=== PATIENT | male | born 2005 | race Two or more races ===

== ENCOUNTER 2024-08-07 08:23 | Emergency (ER) | payer MEDICAID, SELFPAY ==
[2024-08-07 08:24] VITALS: BMI 28.3
[2024-08-07 08:34] VITALS: BP 135/80; PULSE 110; RESP 21; TEMP 38.5; O2SAT 99
--- NOTE | 2024-08-07 08:41 | XR_ITS ---
Examination: PA lateral chest 2 views Technique: Upright PA lateral chest 2 views Exam date and time: August 07, 2024 0904 hrs. Indications: Coughing today. Findings: Normal heart size. Lungs are clear. The osseous structures are intact Impression: No active disease
--- NOTE | 2024-08-07 08:41 | PD.EDURI ---
Upper Respiratory Inf. RME/HPI General Chief Complaint: Flu Like Symptoms Stated Complaint: SORE THROAT, BACK PAIN, FEVER LAST NIGHT Time Seen by Provider: 08/07/24 08:37 Source: patient Arrival date/time: 08/07/24 08:23 18-year-old male presents emergency department complaining of sore throat, upper back pain on inspiration, fever, headache, cough, and generalized bodyaches since last night. Mode of arrival: ambulatory Limitations: no limitations Related Data Previous Rx's ?Medication ?Instructions ?Recorded cephalexin 250 mg capsule (Keflex) 250 mg PO TID #30 caps 04/16/18 diphenhydramine HCl 50 mg capsule 50 mg PO Q6H PRN allergic reaction 11/16/21 #20 caps epinephrine 0.3 mg/0.3 mL 0.3 ml subcut .once #1 ea 11/16/21 injection, auto-injector (EpiPen) famotidine 20 mg tablet 20 mg PO BID #14 tabs 11/16/21 diphenhydramine HCl 25 mg capsule 50 mg (2 x 25 mg) PO Q8H PRN 12/21/22 (Benadryl) allergic reaction #30 caps epinephrine 0.3 mg/0.3 mL 0.3 ml subcut .once #2 ea 12/21/22 injection, auto-injector (EpiPen 2-Diego) acetaminophen 500 mg capsule 500 mg PO Q6H PRN pain #30 caps 08/07/24 ibuprofen 600 mg tablet 600 mg PO Q8H PRN pain #20 tabs 08/07/24 Allergies Allergy/AdvReac Type Severity Reaction Status Date / Time Bee Stings Allergy Unknown HIVES, Uncoded 08/07/24 08:26 THROAT ITCHY, SOB Review of Systems Review of Systems Systems Reviewed: All systems reviewed, normal except as documented Constitutional Constitutional: Reports system reviewed and no additional complaints, except as documented, Reports body ache(s), Denies chills, Reports fever(s) and Reports headache(s) Eyes Eyes: Reports system reviewed and no additional complaints, except as documented and Denies change in vision ENT Ears, Nose, Mouth, and Throat: Reports system reviewed and no additional complaints, except as documented, Denies disequilibrium, Denies dizziness, Reports headache(s), Reports sore throat and Denies vertigo Cardiovascular Cardiovascular: Reports system reviewed and no additional complaints, except as documented, Denies chest pain and Denies dyspnea Respiratory Respiratory: Reports system reviewed and no additional complaints, except as documented, Denies chest congestion, Reports cough and Denies dyspnea Gastrointestinal Gastrointestinal: Reports system reviewed and no additional complaints, except as documented, Denies abdominal pain, Denies nausea and Denies vomiting Musculoskeletal Musculoskeletal: Reports system reviewed and no additional complaints, except as documented, Denies abnormal gait and Denies arthralgias Integumentary/Breasts Skin/Breast: Reports system reviewed and no additional complaints, except as documented, Denies erythema, Denies rash and Denies wounds Neurologic Neurologic: Reports system reviewed and no additional complaints, except as documented, Denies abnormal gait, Denies disequilibrium, Denies dizziness, Reports headache(s) and Denies vertigo Past Medical History Social History SMOKING STATUS: Never smoker ED Exam General Limitations: Present no limitations General appearance: Present alert and in no apparent distress Head Head exam: Present atraumatic Eye Eye exam: Present normal appearance, PERRL and EOMI ENT ENT exam: Present normal exam, normal oropharynx and mucous membranes moist Neck Neck exam: Present normal inspection, full ROM and trachea midline Chest Chest inspection: Present normal inspection and symmetric chest wall rise Respiratory Respiratory exam: Present normal lung sounds bilaterally Cardiovascular Cardiovascular exam: Present regular rate, normal rhythm and normal heart sounds Abdominal Exam Abdominal exam: Present soft and normal bowel sounds Extremities Exam Extremities exam: Present normal inspection and full ROM Back Exam Back exam: Present normal inspection and full ROM Neurological Exam Neurological exam: Present alert, oriented X3 and CN II-XII intact Psychiatric Psychiatric exam: Present normal affect and normal mood Skin Skin exam: Present warm, dry, intact and normal color Course Quality Measures none Orders Category Date Time Status Bedside Influenza A&B Antigen Test NOW Care 08/07/24 08:41 Completed XR chest 2V Stat Exams 08/07/24 08:41 Completed Strep A Rapid Stat Lab 08/07/24 08:52 Completed Acetaminophen Tab [Tylenol ES Tab] Med 08/07/24 08:40 Discontinued 1,000 mg PO X1 ONE Ibuprofen Tab [Motrin Tab] Med 08/07/24 08:40 Discontinued 600 mg PO X1 ONE Vital Signs Vital signs: Vital Signs Temperature 101.3 F H 08/07/24 08:34 Pulse Rate 110 H 08/07/24 08:34 Respiratory Rate 21 H 08/07/24 08:34 Blood Pressure 135/80 H 08/07/24 08:34 Pulse Oximetry (%) 99 08/07/24 08:34 Oxygen Delivery Method Room Air 08/07/24 08:34 99% room air within normal limits Upper Respiratory Infection MDM Narrative MDM Narrative:: 18-year-old male presents emergency department complaining of sore throat, upper back pain on inspiration, fever, headache, cough, and generalized bodyaches since last night. X-ray was unremarkable for any pneumonic infiltrates. Patient appears nontoxic and hemodynamic stable. Patient likely has viral infection. Patient data External records reviewed:: [facility] previous records Clinical information provided by:: patient Social determinants that could affect healthcare access:: none Patient has the following chronic illnesses:: None How is presenting disease/condition affected by chronic disease/condition?: no chronic disease Evaluation data The following diagnostics were reviewed and interpreted by me:: radiology exam(s) Lab and/or radiology exams considered but not ordered:: Ordered Interpretation Summary: Interpreted by me Medications / Prescriptions Medications or Prescriptions considered but not ordered:: Ordered Medication administrations:: Medication Administration History Discontinued Medications Acetaminophen (Acetaminophen 500 Mg Tablet) 1,000 mg PO X1 ONE Stop: 08/07/24 08:41 Last Admin: 08/07/24 09:00 Dose: 1,000 mg Documented By: [facility] Ibuprofen (Ibuprofen Tab 600 Mg Tablet) 600 mg PO X1 ONE Stop: 08/07/24 08:41 Last Admin: 08/07/24 09:01 Dose: 600 mg Documented By: [facility] Given Consultations Consultation(s) initiated? (list below): No Diagnosis Upper Respiratory Differential Diagnosis: upper respiratory infection, sinusitis, viral infection, bronchitis, influenza and pharyngitis Most likely diagnosis given after review of the tests above:: Viral infection Admission Indicated Admission indicated?: not indicated Admission Request Was there a request for admission?: No Disposition Plan Disposition Plan: Discharge Discharge Attestation Discharge Attestation: The patient and all family members were given an opportunity to ask questions and understood the discharge instructions. Discharge instructions specifically effects, indications for sooner follow up or return to the emergency department, and the expected course of current diagnosis. Patient condition: Stable Discharge Plan Plan Patient Disposition: HOME (Self Care) Disposition Comment: Stable Prescriptions/Referrals Prescriptions/Med Rec: New acetaminophen 500 mg capsule 500 mg PO Q6H PRN (Reason: pain) Qty: 30 0RF ibuprofen 600 mg tablet 600 mg PO Q8H PRN (Reason: pain) Qty: 20 0RF No Action diphenhydramine HCl 50 mg capsule 50 mg PO Q6H PRN (Reason: allergic reaction) Qty: 20 0RF famotidine 20 mg tablet 20 mg PO BID Qty: 14 0RF epinephrine [EpiPen] 0.3 mg/0.3 mL auto-injector 0.3 ml subcut .once Qty: 1 2RF Rx Instructions: Give EpiPen subcu in anterior lateral aspect of thigh. cephalexin [Keflex] 250 mg capsule 250 mg PO TID Qty: 30 0RF epinephrine [EpiPen 2-Diego] 0.3 mg/0.3 mL auto-injector 0.3 ml subcut .once Qty: 2 0RF Rx Instructions: pt does not know how to self administer please re-educate diphenhydramine HCl [Benadryl] 25 mg capsule 50 mg PO Q8H PRN (Reason: allergic reaction) Qty: 30 0RF Referrals: No Primary/Family,Physician [Primary Care Provider] - In 1 week Problem List Clinical Impression: Viral infection Patient/Caregiver Discharge Instructions Discharge Activity: activity as tolerated Education Materials: ED Viral Syndrome (Adult) Additional Instructions: Drink plenty of fluids and get plenty of rest. Take Tylenol or ibuprofen as needed for fever or pain. Follow-up with primary care provider in 2 to 3 days. Return to emergency department for any worsening symptoms or as needed. Print Language: Lebanese Stand Alone Forms: Ayanna Award Info., Work/School Release, Patient Portal Info Letter PA/JANEL Supervising Physician IVONNE/JANEL Supervising Physician: Dr. Pompa
[2024-08-07] MEDS: ACETAMINOPHEN 500 MG TABLET 1000 MG PO (09:00)
[2024-08-07] MEDS: IBUPROFEN TAB 600 MG TABLET PO (09:01)
[2024-08-07 09:20] LABS: Strep A Rapid Negative (Negative)
[2024-08-07 10:52] VITALS: BP 143/88; PULSE 89; RESP 16; TEMP 37.2; O2SAT 100
== END 2024-08-07 10:52 | disposition home or self-care (01) ==
PROVIDERS: Emergency Provider Emergency Medicine
DX: B34.9 Viral infection, unspecified (principal); R05.9 Cough, unspecified
CPT/HCPCS: 71046; 87400; 87651; 99283; A9270

== ENCOUNTER 2025-03-07 06:42 | Emergency (ER) | payer MEDICAID, SELFPAY ==
[2025-03-07 06:43] VITALS: BMI 30.9
[2025-03-07 06:54] VITALS: BP 134/89; PULSE 113; RESP 20; TEMP 37.7; O2SAT 98
--- NOTE | 2025-03-07 06:59 | EDNOTE_ITS ---
<Statement entered by Maria Elena Gross MD - 03/07/25 17:44> As co-signing physician, I was present and available for consult prn. I concur with the plan and care as documented by the midlevel provider. Upper Respiratory Inf. RME/HPI General Chief Complaint: Fever Stated Complaint: SORE THORAT, FEVER Time Seen by Provider: 03/07/25 06:44 Arrival date/time: 03/07/25 06:42 19-year-old male presents emergency department today for complaint of sore throat ongoing intermittently times 1 year patient reports worsening pain for the last week pain with swallowing Limitations: no limitations Related Data Previous Rx's ?Medication ?Instructions ?Recorded cephalexin 250 mg capsule (Keflex) 250 mg PO TID #30 c aps 04/16/18 diphenhydramine HCl 50 mg capsule 50 mg PO Q6H PRN all ergic reaction 11/16/21 #20 caps epinephrine 0.3 mg/0.3 mL 0.3 ml subcut .once #1 ea injection, auto-injector (EpiPen) famotidine 20 mg tablet 20 mg PO BID #14 tabs diphenhydramine HCl 25 mg capsule 50 mg (2 x 25 mg) PO Q8H PRN 12/21/22 (Benadryl) allergic reaction #30 caps epinephrine 0.3 mg/0.3 mL 0.3 ml subcut .once #2 ea injection, auto-injector (EpiPen 2-Diego) acetaminophen 500 mg capsule 500 mg PO Q6H PRN pain #3 0 caps 08/07/24 ibuprofen 600 mg tablet 600 mg PO Q8H PRN pain #20 t abs 08/07/24 amoxicillin 875 mg-potassium 1 tab PO BID 7 days #14 t abs 03/07/25 clavulanate 125 mg tablet ibuprofen 800 mg tablet 800 mg PO TID PRN pain #30 t abs 03/07/25 Review of Systems Review of Systems Systems Reviewed: All systems reviewed, normal except as documented Constitutional Constitutional: Reports system reviewed and no additional complaints, except as documented, Denies fever(s) and Denies headache(s) Eyes Eyes: Reports system reviewed and no additional complaints, except as documented and Denies blurry vision ENT Ears, Nose, Mouth, and Throat: Reports system reviewed and no additional complai nts, except as documented, Denies headache(s), Denies nasal congestion, Denies nasal discharge and Reports sore throat Cardiovascular Cardiovascular: Reports system reviewed and no additional complaints, except as documented, Denies chest pain and Denies dyspnea Respiratory Respiratory: Reports system reviewed and no additional complaints, except as documented, Denies chest congestion, Denies cough and Denies dyspnea Gastrointestinal Gastrointestinal: Reports system reviewed and no additional complaints, except as documented and Denies abdominal pain Integumentary/Breasts Skin/Breast: Reports system reviewed and no additional complaints, except as documented and Denies rash Neurologic Neurologic: Reports system reviewed and no additional complaints, except as documented, Reports as per HPI and Denies headache(s) Past Medical History Social History SMOKING STATUS: Never smoker ED Exam General Limitations: Present no limitations General appearance: Present alert and in no apparent distress Head Head exam: Present atraumatic, normocephalic and normal inspection Eye Eye exam: Present normal appearance, PERRL and EOMI; Absent conjunctival injection ENT ENT exam: Present mucous membranes moist Expanded ENT Exam Throat exam: Present tonsillar erythema and tonsillomegaly; Absent tonsillar exudate, R peritonsillar mass, L peritonsillar mass or muffled voice Neck Neck exam: Present normal inspection, full ROM and trachea midline Chest Chest inspection: Present normal inspection and symmetric chest wall rise Respiratory Respiratory exam: Present normal lung sounds bilaterally Cardiovascular Cardiovascular exam: Present regular rate, normal rhythm and normal heart sounds Abdominal Exam Abdominal exam: Present soft and normal bowel sounds Extremities Exam Extremities exam: Present normal inspection and full ROM Back Exam Back exam: Present normal inspection and full ROM Neurological Exam Neurological exam: Present alert, oriented X3 and CN II-XII intact Psychiatric Psychiatric exam: Present normal affect and normal mood Skin Skin exam: Present warm, dry, intact and normal color Course Quality Measures none Orders Category Date Time Status Bedside COVID-19 Antigen Test NOW Care 03/07/25 06:59 Completed Bedside Influenza A&B Antigen Test NOW Care 03/07/25 06:59 Completed Ibuprofen Tab [Motrin Tab] Med 03/07/25 06:59 Discontinued 800 mg PO X1 ONE Vital Signs Vital signs: Vital Signs Temperature 99.9 F 03/07/25 06:54 Pulse Rate 113 H 03/07/25 06:54 Respiratory Rate 20 03/07/25 06:54 Blood Pressure 134/89 H 03/07/25 06:54 Pulse Oximetry (%) 98 03/07/25 06:54 Oxygen Delivery Method Room Air 03/07/25 06:54 O2 saturation 98% room air within normal limits Upper Respiratory Infection MDM Narrative MDM Narrative:: 19-year-old male presents emergency department today for complaint of sore throat ongoing intermittently times 1 year patient reports worsening pain for the last week pain with swallowing On exam patient well-appearing patient is not appear ill or toxic in no acute distress on exam patient is no trismus no hoarseness of voice no difficulty breathing or swallowing Patient checked for flu COVID both which are negative Attempted to at obtain a strep swab patient unable to tolerate the strep swab Patient be treated for pharyngitis Patient discharged home in no distress to follow-up with primary care doctor in the next 24 to 48 hours and for any worsening symptoms to return to the ER immediately Patient data External records reviewed:: [facility] previous records Clinical information provided by:: patient Social determinants that could affect healthcare access:: none Patient has the following chronic illnesses:: None How is presenting disease/condition affected by chronic disease/condition?: no chronic disease Evaluation data The following diagnostics were reviewed and interpreted by me:: lab results Lab and/or radiology exams considered but not ordered:: Flu COVID strep obtained Interpretation Summary: Reviewed by me Medications / Prescriptions Medications or Prescriptions considered but not ordered:: Given Medication administrations:: Medication Administration History Discontinued Medications Ibuprofen (Ibuprofen Tab 400 Mg Tablet) 800 mg PO X1 ONE Stop: 03/07/25 07:00 Given Consultations Consultation(s) initiated? (list below): No Diagnosis Upper Respiratory Differential Diagnosis: upper respiratory infection, viral infection, bronchitis and influenza Most likely diagnosis given after review of the tests above:: Pharyngitis Admission Indicated Admission indicated?: not indicated Admission Request Was there a request for admission?: No Disposition Plan Disposition Plan: Discharge Discharge Attestation Discharge Attestation: The patient and all family members were given an opportunity to ask questions and understood the discharge instructions. Discharge instructions specifically effects, indications for sooner follow up or return to the emergency department, and the expected course of current diagnosis. Patient condition: Stable Discharge Plan Plan Patient Disposition: HOME (Self Care) Discharge Disposition comment: stable Prescriptions/Referrals Prescriptions/Med Rec: New ibuprofen 800 mg tablet 800 mg PO TID PRN (Reason: pain) Qty: 30 0RF amoxicillin-pot clavulanate 875-125 mg tablet 1 tab PO BID 7 Days Qty: 14 0RF No Action diphenhydramine HCl 50 mg capsule 50 mg PO Q6H PRN (Reason: allergic reaction) Qty: 20 0RF famotidine 20 mg tablet 20 mg PO BID Qty: 14 0RF epinephrine [EpiPen] 0.3 mg/0.3 mL auto-injector 0.3 ml subcut .once Qty: 1 2RF Rx Instructions: Give EpiPen subcu in anterior lateral aspect of thigh. cephalexin [Keflex] 250 mg capsule 250 mg PO TID Qty: 30 0RF epinephrine [EpiPen 2-Diego] 0.3 mg/0.3 mL auto-injector 0.3 ml subcut .once Qty: 2 0RF Rx Instructions: pt does not know how to self administer please re-educate diphenhydramine HCl [Benadryl] 25 mg capsule 50 mg PO Q8H PRN (Reason: allergic reaction) Qty: 30 0RF acetaminophen 500 mg capsule 500 mg PO Q6H PRN (Reason: pain) Qty: 30 0RF ibuprofen 600 mg tablet 600 mg PO Q8H PRN (Reason: pain) Qty: 20 0RF Problem List Clinical Impression: Pharyngitis Patient/Caregiver Discharge Instructions Education Materials: Self-Care for Sore Throats Additional Instructions: Please follow up with your primary care doctor in the next 24-48hrs for any worsening symptoms return here immediately Print Language: [place] Stand Alone Forms: Ayanna Award Info., Work/School Release, Patient Portal Info Letter PA/CORE MANAGER Supervising Physician PA/CORE MANAGER Supervising Physician: dr gross
== END 2025-03-07 07:22 | disposition home or self-care (01) ==
PROVIDERS: Emergency Provider Emergency Medicine
DX: J02.9 Acute pharyngitis, unspecified (principal)
CPT/HCPCS: 87400; 87651; 87811; 99283

== ENCOUNTER 2025-04-21 17:30 | Emergency (ER) | payer MEDICAID, SELFPAY ==
[2025-04-21 17:31] VITALS: BMI 27.4
--- NOTE | 2025-04-21 17:38 | PD.EDALLER ---
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 Now patient is complaining of erythematous rashes scattered all over, with difficulty swallowing saliva. Denies any shortness of breath. Denies any other complaints no medication was taken prior to ER visit. Related Data Previous Rx's ?Medication ?Instructions ?Recorded cephalexin 250 mg capsule (Keflex) 250 mg PO TID #30 caps 04/16/18 diphenhydramine HCl 50 mg capsule 50 mg PO Q6H PRN allergic reaction 11/16/21 #20 caps epinephrine 0.3 mg/0.3 mL 0.3 ml subcut .once #1 ea 11/16/21 injection, auto-injector (EpiPen) famotidine 20 mg tablet 20 mg PO BID #14 tabs 11/16/21 diphenhydramine HCl 25 mg capsule 50 mg (2 x 25 mg) PO Q8H PRN 12/21/22 (Benadryl) allergic reaction #30 caps epinephrine 0.3 mg/0.3 mL 0.3 ml subcut .once #2 ea 12/21/22 injection, auto-injector (EpiPen 2-Diego) acetaminophen 500 mg capsule 500 mg PO Q6H PRN pain #30 caps 08/07/24 ibuprofen 600 mg tablet 600 mg PO Q8H PRN pain #20 tabs 08/07/24 ibuprofen 800 mg tablet 800 mg PO TID PRN pain #30 tabs 03/07/25 epinephrine 0.3 mg/0.3 mL 0.3 ml subcut .once PRN 04/21/25 injection, auto-injector hypersensitivity reaction #2 ea Allergies Allergy/AdvReac Type Severity Reaction Status Date / Time venom-honey bee Allergy Swelling Verified 04/21/25 17:31 of Lip/Tongue/Throat Review of Systems Review of Systems Narrative Review of Systems: Review of system reviewed and within normal limits except mentioned in HPI ED Exam Narrative Physical exam: VITAL SIGNS: Reviewed. GENERAL APPEARANCE: Alert and interactive, follows commands, no acute distress, HEAD AND FACE: Non-traumatic. ENT: PERRL, pink conjunctivitis, eyelid no trauma, Mucous membrane moist. NECK: Supple, nontender, no nuchal rigidity. CHEST: No tenderness, no crepitus, no paradoxical movement, no retractions. LUNGS: Clear, well ventilated, symmetric, no rales, no wheezing, no ronchi, no stridor, good breath sounds bilaterally. HEART: Regular rate, regular rhythm, no murmur, no gallops. ABDOMEN: Soft, positive bowel sounds, nondistended, no guarding, nontender, no rebound, no masses, RECTAL: Deferred. GENITAL: Deferred. NEUROLOGICAL: Gross motor function intact sensory function intact, Appropriate for age. MUSCULOSKELETAL: low back nontender, full range of motion. EXTREMITIES: Nontender, full range of motion. SKIN: Color pink, dry, erythematous rashes scattered all over,, no lacerations, no abrasions, no contusions. LYMPHATICS: Deferred. Course Quality Measures none Orders Category Date Time Status Dexamethasone Inj [Decadron Inj] Med 04/21/25 17:45 Discontinued 10 mg IV X1 ONE Dexamethasone Inj [Decadron Inj] 10 mg Med 04/21/25 17:36 Discontinued Sodium Chloride 0.9% [Ns] 100 ml IV X1 DiphenhydrAMINE INJ [Benadryl Inj] Med 04/21/25 17:36 Discontinued 50 mg IVP X1 ONE EPINEPHrine Inj [Adrenalin Inj] Med 04/21/25 17:36 Discontinued 0.5 mg IM X1 ONE Famotidine Inj [Pepcid Inj] Med 04/21/25 17:36 Discontinued 20 mg IVP X1 ONE Ringers Lactated 1000 ml [Lactated Ringers] 1,000 ml Med 04/21/25 17:38 Discontinued IV 999 mls/hr Vital Signs Vital signs: Vital Signs Temperature 98.6 F 04/21/25 17:39 Pulse Rate 104 H 04/21/25 17:39 Respiratory Rate 17 04/21/25 17:39 Blood Pressure 153/87 H 04/21/25 17:39 Pulse Oximetry (%) 96 04/21/25 17:39 Oxygen Delivery Method Room Air 04/21/25 17:39 Allergic Reaction MDM Narrative MDM Narrative:: 19-year-old male patient with a 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 Now patient is complaining of erythematous rashes scattered all over, with difficulty swallowing saliva. Denies any shortness of breath. Denies any other complaints no medication was taken prior to ER visit. Patient received IV fluids, Decadron IV, epinephrine IM, Pepcid and Benadryl with complete resolution of symptoms. Patient was observed for more than 2 hours in the emergency room. Patient stable for discharge home. Patient appears nontoxic and hemodynamically stable .Decision to discharge the patient. The patient/family was given an opportunity to ask questions and understood their discharge instructions. Discharge instructions specifically included follow up provider and time frame, current and/or new medications and possible side effects, indications for sooner follow up or return to the emergency department, and the expected course of current diagnosis. Patient reports feeling better as well and giving evidence of significant clinical improvement, I believe patient is now a candidate for discharge. Patient data External records reviewed:: None Clinical information provided by:: patient Social determinants that could affect healthcare access:: none Patient has the following chronic illnesses:: None How is presenting disease/condition affected by chronic disease/condition?: no chronic disease Evaluation data The following diagnostics were reviewed and interpreted by me:: lab results and other (specify) (None) Lab and/or radiology exams considered but not ordered:: None Interpretation Summary: None Medications / Prescriptions Medications or Prescriptions considered but not ordered:: None Medication administrations:: Medication Administration History Discontinued Medications Dexamethasone Sodium Phosphate (Dexamethasone Sod Phos Inj 10 Mg/Ml Vial) 10 mg IV X1 ONE Stop: 04/21/25 17:46 Last Admin: 04/21/25 17:49 Dose: 10 mg Documented By: VIVIAN Diphenhydramine HCl (Diphenhydramine Inj 50 Mg/Ml Vial) 50 mg IVP X1 ONE Stop: 04/21/25 17:37 Last Admin: 04/21/25 17:48 Dose: 50 mg Documented By: VIVIAN Epinephrine HCl (Epinephrine Inj 1 Mg/Ml Amp) 0.5 mg IM X1 ONE Stop: 04/21/25 17:37 Last Admin: 04/21/25 17:49 Dose: 0.5 mg Documented By: VIVIAN Famotidine (Famotidine Inj 10 Mg/Ml Vial 2 Ml) 20 mg IVP X1 ONE Stop: 04/21/25 17:37 Last Admin: 04/21/25 17:48 Dose: 20 mg Documented By: VIVIAN Dexamethasone Sodium Phosphate (10 mg/ Sodium Chloride) 101 mls @ 101 mls/hr IV X1 ONE Stop: 04/21/25 17:37 Last Admin: 04/21/25 17:53 Dose: Not Given Documented By: VIVIAN Non-Admin Reason: Discontinued Lactated Ringer's (Lactated Ringers) 1,000 mls @ 999 mls/hr IV .Q1H1M ONE Stop: 04/21/25 18:38 Last Infusion: 04/21/25 19:09 Dose: Infused Documented By: Admin: 04/21/25 17:50 Dose: 999 mls/hr Documented By: VIVIAN Prior external records reviewed: IV fluids, Decadron, Pepcid Benadryl Decadron Consultations Consultation(s) initiated? (list below): No Diagnosis Differential Diagnosis allergic reaction: anaphylaxis and allergic reaction Most likely diagnosis given after review of the tests above:: Bee sting allergy Admission Indicated Admission indicated?: not indicated Explain why admission is indicated or not indicated:: None Admission Request Was there a request for admission?: No Disposition Plan Disposition Plan: Discharge Discharge Attestation Discharge Attestation: The patient was given an opportunity to ask questions and understood the discharge instructions. Discharge instructions specifically effects, indications for sooner follow up or return to the emergency department, and the expected course of current diagnosis. Patient condition: Stable Discharge Plan Plan Patient Disposition: HOME (Self Care) Discharge Disposition comment: Stable Prescriptions/Referrals Prescriptions/Med Rec: New epinephrine 0.3 mg/0.3 mL auto-injector 0.3 ml subcut .once PRN (Reason: hypersensitivity reaction) Qty: 2 0RF No Action diphenhydramine HCl 50 mg capsule 50 mg PO Q6H PRN (Reason: allergic reaction) Qty: 20 0RF famotidine 20 mg tablet 20 mg PO BID Qty: 14 0RF epinephrine [EpiPen] 0.3 mg/0.3 mL auto-injector 0.3 ml subcut .once Qty: 1 2RF Rx Instructions: Give EpiPen subcu in anterior lateral aspect of thigh. cephalexin [Keflex] 250 mg capsule 250 mg PO TID Qty: 30 0RF epinephrine [EpiPen 2-Diego] 0.3 mg/0.3 mL auto-injector 0.3 ml subcut .once Qty: 2 0RF Rx Instructions: pt does not know how to self administer please re-educate diphenhydramine HCl [Benadryl] 25 mg capsule 50 mg PO Q8H PRN (Reason: allergic reaction) Qty: 30 0RF acetaminophen 500 mg capsule 500 mg PO Q6H PRN (Reason: pain) Qty: 30 0RF ibuprofen 600 mg tablet 600 mg PO Q8H PRN (Reason: pain) Qty: 20 0RF ibuprofen 800 mg tablet 800 mg PO TID PRN (Reason: pain) Qty: 30 0RF Referrals: No Primary/Family,Physician [Primary Care Provider] - In 1 week Problem List Clinical Impression: Allergic reaction to bee sting Patient/Caregiver Discharge Instructions Discharge Activity: activity as tolerated Education Materials: ED BEE STING General Allergic Rxn Additional Instructions: Thank you for the opportunity for serving you today. You are stable for discharged . You are advised to: Follow-up with your PCP in 1 to 2 days Return to ED for worsening of symptoms Increase oral fluids Take medication as prescribed Print Language: Gambian Stand Alone Forms: Ayanna Award Info., Patient Portal Info Letter IVONNE/JANEL Supervising Physician IVONNE/JANEL Supervising Physician: MD Nikolai
[2025-04-21 17:39] VITALS: BP 153/87; PULSE 104; RESP 17; TEMP 37; O2SAT 96
[2025-04-21] MEDS: FAMOTIDINE INJ 10 MG/ML VIAL 2 ML 20 MG IVP (17:48)
[2025-04-21 17:49] VITALS: BP 153/87; PULSE 104
[2025-04-21] MEDS: EPINEPHrine INJ 1 MG/ML AMP 0.5 MG IM (17:49)
[2025-04-21] MEDS: DEXAMETHASONE SOD PHOS INJ 10 MG/ML VIAL IV (17:49)
[2025-04-21] MEDS: RINGERS LACTATED 1000 ML 1,000 ML 999 ML IV (17:50)
[2025-04-21 18:03] VITALS: BP 139/86; PULSE 91; RESP 21; TEMP 37; O2SAT 99
[2025-04-21 20:15] VITALS: BP 147/103; PULSE 110; RESP 17; O2SAT 99
== END 2025-04-21 20:16 | disposition home or self-care (01) ==
PROVIDERS: Emergency Provider Family Medicine
DX: T63.441A Toxic effect of venom of bees, accidental (unintentional), initial encounter (principal); R13.10 Dysphagia, unspecified; R21 Rash and other nonspecific skin eruption
CPT/HCPCS: 99283; J0166; J1100; J1200; J3490; J7120

== ENCOUNTER 2025-07-16 13:36 | Emergency (ER) | payer MEDICAID, SELFPAY ==
[2025-07-16 14:00] VITALS: BP 146/91; PULSE 92; RESP 18; TEMP 37.2; O2SAT 99
--- NOTE | 2025-07-16 14:11 | EDNOTE_ITS ---
ED Male Genitalurinary RME/HPI General Chief complaint: Urogenital-Male Stated complaint: R) TESTICULAR PAIN X 3 MOS Time Seen by Provider: 07/16/25 14:08 Arrival date/time: 07/16/25 13:36 RME / HPI RME / HPI Narrative: See [facility] for Dr. Perez's HPI Documentation. Related Data Previous Rx's ?Medication ?Instructions ?Recorded cephalexin 250 mg capsule (Keflex) 250 mg PO TID #30 c aps 04/16/18 diphenhydramine HCl 50 mg capsule 50 mg PO Q6H PRN all ergic reaction 11/16/21 #20 caps epinephrine 0.3 mg/0.3 mL 0.3 ml subcut .once #1 ea injection, auto-injector (EpiPen) famotidine 20 mg tablet 20 mg PO BID #14 tabs diphenhydramine HCl 25 mg capsule 50 mg (2 x 25 mg) PO Q8H PRN 12/21/22 (Benadryl) allergic reaction #30 caps epinephrine 0.3 mg/0.3 mL 0.3 ml subcut .once #2 ea injection, auto-injector (EpiPen 2-Diego) acetaminophen 500 mg capsule 500 mg PO Q6H PRN pain #3 0 caps 08/07/24 ibuprofen 600 mg tablet 600 mg PO Q8H PRN pain #20 t abs 08/07/24 ibuprofen 800 mg tablet 800 mg PO TID PRN pain #30 t abs 03/07/25 epinephrine 0.3 mg/0.3 mL 0.3 ml subcut .once PRN 04/10 10/04 injection, auto-injector hypersensitivity reaction #2 ea Allergies Allergy/AdvReac Type Severity Reaction Status Date / Time venom-honey bee Allergy Swelling Verified 07/16/25 13:39 of Lip/Tongue/Throat Review of Systems Review of Systems Systems Reviewed: All systems reviewed, normal except as documented Past Medical History Social History SMOKING STATUS: Never smoker ED Exam Narrative Physical exam: See [facility] for Dr. Perez's HPI Documentation. Course Quality Measures none Orders Category Date Time Status US testicular Stat Exams 07/16/25 14:11 Completed Chlamydia/GC/TV - PCR Stat Lab 07/16/25 14:40 Received UA, C/S IF [Urinalysis, C/S if Indicated] Stat Lab 07/16/25 14:40 Completed Vital Signs Vital signs: Vital Signs Temperature 98.9 F 07/16/25 14:00 Pulse Rate 92 07/16/25 14:00 Respiratory Rate 18 07/16/25 14:00 Blood Pressure 146/91 H 07/16/25 14:00 Pulse Oximetry (%) 99 07/16/25 14:00 Oxygen Delivery Method Room Air 07/16/25 14:00 Urogenital - Male MDM Narrative MDM Narrative:: This section includes all my notes and documentations, including HPI, PE, and ED course. Jacoby Perez MD HPI: 19-year-old male with testicular pain for 3 months. Has trouble localizing the pain further. No redness or swelling or warmth. No dysuria or penile discharge or other urinary symptoms. No concerns for sexually transmitted infections. No fever or chills or aches or malaise. No other complaints. ROS: All negative except as documented in HPI. Physical Exam: General: Alert and oriented. Eyes: Conjunctivae and lids clear. ENT: No nasal congestion. Neck: Supple. Lungs: No respiratory distress. Skin: Warm and dry. Neuro: Alert and oriented X 3. Genitalia: Normal anatomy with uncircumcised penis. No scrotal mass/edema/calor/erythema/tenderness. No inguinal hernia bilaterally. I reviewed all diagnostic test results: My review of the testicular US report is mild left hydrocele. UA normal. Urine chlamydia/gonorrhea/trichomonas pending. At this point, diagnoses include: Mild left hydrocele Treatment here included: None Recommended more outpatient home care. Based on my best medical judgment, made decision no further evaluation or treatment indicated at this time. Patient understands and agrees to the discharge instructions customized and printed, see below. Discharge Instructions from Dr. Perez printed for you: 1. After evaluation, there is no serious condition. Such as testicular torsion needing urgent surgery. Or epididymitis or other infection. 2. You have very mild hydrocele, see attached handout. 3. Apply ice or heat if helpful. Ibuprofen/Tylenol as needed. 4. See a private doctor on 07/17/2025 for recheck. Ask to review all test results and official radiology reports, to make sure you receive all necessary follow-ups and monitoring. Ask for a referral to see urologist to make sure there is no serious underlying urological condition. 5. Seek immediate medical care with worsening or with any concerns. Jacoby Perez MD Patient data External records reviewed:: [facility] previous records Clinical information provided by:: patient Social determinants that could affect healthcare access:: none Patient has the following chronic illnesses:: Denies any PMHx, surgeries, or daily medications. How is presenting disease/condition affected by chronic disease/condition?: no chronic disease Evaluation data The following diagnostics were reviewed and interpreted by me:: lab results and radiology exam(s) Lab and/or radiology exams considered but not ordered:: none Interpretation Summary: I reviewed all diagnostic test results: My review of the testicular US report is mild left hydrocele. UA normal. Urine chlamydia/gonorrhea/trichomonas pending. Medications / Prescriptions Medications or Prescriptions considered but not ordered:: none Medication administrations:: None Consultations Consultation(s) initiated? (list below): No Diagnosis Urogenital Male Differential Diagnosis: urinary tract infection, urethritis, epididymitis, inguinal hernia and other (varicocele) Most likely diagnosis given after review of the tests above:: Mild left hydrocele Admission Indicated Admission indicated?: not indicated Explain why admission is indicated or not indicated:: With no condition needing emergent intervention, there was no indication for admission. Admission Request Was there a request for admission?: No Disposition Plan Disposition Plan: Discharge Discharge Attestation Discharge Attestation: The patient and all family members were given an opportunity to ask questions and understood the discharge instructions. Discharge instructions specifically effects, indications for sooner follow up or return to the emergency department, and the expected course of current diagnosis. Patient condition: Stable Discharge Plan Plan Patient Disposition: HOME (Self Care) Prescriptions/Referrals Prescriptions/Med Rec: No Action diphenhydramine HCl 50 mg capsule 50 mg PO Q6H PRN (Reason: allergic reaction) Qty: 20 0RF famotidine 20 mg tablet 20 mg PO BID Qty: 14 0RF epinephrine [EpiPen] 0.3 mg/0.3 mL auto-injector 0.3 ml subcut .once Qty: 1 2RF Rx Instructions: Give EpiPen subcu in anterior lateral aspect of thigh. cephalexin [Keflex] 250 mg capsule 250 mg PO TID Qty: 30 0RF epinephrine 0.3 mg/0.3 mL auto-injector 0.3 ml subcut .once PRN (Reason: hypersensitivity reaction) Qty: 2 0RF epinephrine [EpiPen 2-Diego] 0.3 mg/0.3 mL auto-injector 0.3 ml subcut .once Qty: 2 0RF Rx Instructions: pt does not know how to self administer please re-educate diphenhydramine HCl [Benadryl] 25 mg capsule 50 mg PO Q8H PRN (Reason: allergic reaction) Qty: 30 0RF acetaminophen 500 mg capsule 500 mg PO Q6H PRN (Reason: pain) Qty: 30 0RF ibuprofen 600 mg tablet 600 mg PO Q8H PRN (Reason: pain) Qty: 20 0RF ibuprofen 800 mg tablet 800 mg PO TID PRN (Reason: pain) Qty: 30 0RF Referrals: Syed Lay MD [Primary Care Provider, Family Practice] - In 1 week Problem List Clinical Impression: Hydrocele Patient/Caregiver Discharge Instructions Discharge Activity: activity as tolerated Education Materials: ED Hydrocele, Type Not Specified Additional Instructions: Discharge Instructions from Dr. Perez printed for you: 1. After evaluation, there is no serious condition. Such as testicular torsion needing urgent surgery. Or epididymitis or other infection. 2. You have very mild hydrocele, see attached handout. 3. Apply ice or heat if helpful. Ibuprofen/Tylenol as needed. 4. See a private doctor on 07/17/2025 for recheck. Ask to review all test results and official radiology reports, to make sure you receive all necessary follow-ups and monitoring. Ask for a referral to see urologist to make sure there is no serious underlying urological condition. 5. Seek immediate medical care with worsening or with any concerns. Print Language: Setswana Stand Alone Forms: Ayanna Award Info., Patient Portal Info Letter
--- NOTE | 2025-07-16 14:11 | XR_ITS ---
EXAMINATION: Testicular sonography complete TECHNIQUE: Grayscale sonographic images testes, assessment arterial inflow and venous outflow Doppler spectral analysis color flow analysis Date and time: July 16, 2025, 1445 hours INDICATIONS: Right testicular pain and groin pain beginning 3 months ago FINDINGS: Right testis 4.1 cm epididymis 1.2 cm Arterial flow to the testicle. No testicular mass Left testis 4.3 cm epididymis 2.0 cm Arterial flow to the testicle. No testicular mass Mild left hydrocele IMPRESSION: No testicular torsion or testicular mass Mild left hydrocele
[2025-07-16 14:45] LABS: Collection Type, Urine Clean Catch; RBC,Urine 0 /hpf (0-3); Squamous Epithelial Cell,Urine 0 /hpf (0-5)
[2025-07-16 14:51] LABS: Bacteria,Urine Rare; Bilirubin,Urine Negative (Negative); Blood,Urine Negative (Negative); Clarity,Urine Clear (Clear/Hazy); Color,Urine Yellow (Lt Yel-Yel); Culture Indicated,Urine Not Indicated; Glucose, Urine Trace (Negative); Ketones,Urine Negative (Negative); Leukocyte Esterase,Urine Negative (Negative); Nitrite,Urine Negative (Negative); PH,Urine 7.5 (5.0-7.0); Protein,Urine Trace (Neg - Trace); Specific Gravity,Urine 1.037 (1.001-1.035); Urobilinogen,Urine 2.0 mg/dL (0.0-1.0); WBC,Urine 1 /hpf (0-5)
[2025-07-17 18:12] LABS: Chlamydia trachomatis PCR Negative (Not Detect); Neisseria Gonorrhoeae DNA PCR Negative (Not Detect); Trichomonas Negative (Negative)
== END 2025-07-16 17:46 | disposition home or self-care (01) ==
PROVIDERS: Emergency Provider Emergency Medicine; PCP Family Medicine
DX: N43.3 Hydrocele, unspecified (principal)
CPT/HCPCS: 76870; 81001; 87491; 87591; 87661; 99283